=== PATIENT | male | born 1985 | race American Indian/Alaskan Native ===

== ENCOUNTER 2018-11-11 11:35 | Inpatient (IN) | payer MEDICAID, OTHER ==
[2018-11-11 11:41] VITALS: BMI 33.4
[2018-11-11 11:47] VITALS: RESP 18; O2SAT 95
--- NOTE | 2018-11-11 12:06 | ED PDOC ---
Arrival/HPI - General Historian: Patient - History of Present Illness Narrative History of Present Illness (Text): Patient is a 33 year old male with no significant medical history presenting with chief complaint of pain in his anal region which began a day prior. Patient states that he was itching and began scratching the area two days ago. Admits to constant sharp pain. He tried A&D ointment with no relief. Denies any bleeding or discharge from the area. Denies fevers, chills, chest pain, shortness of breath, abdominal pain, diarrhea, dysuria. Time/Duration: 24 hours Symptom Onset: Sudden Symptom Course: Unchanged Quality: Stabbing <Jesse Matias - Last Filed: 11/11/18 18:54> <Lester Hernández - Last Filed: 11/12/18 13:23> - General Chief Complaint: Abnormal Skin Integrity Past Medical History - Provider Review Nursing Documentation Reviewed: Yes - Psychiatric Hx Substance Use: No <Jesse Matias - Last Filed: 11/11/18 18:54> Family/Social History - Physician Review Nursing Documentation Reviewed: Yes Family/Social History: No Known Family HX Smoking Status: Former Smoker Hx Alcohol Use: Yes Frequency of alcohol use: Socially Hx Substance Use: No <Jesse Matias - Last Filed: 11/11/18 18:54> Allergies/Home Meds <Jesse Matias - Last Filed: 11/11/18 18:54> <Lester Hernández - Last Filed: 11/12/18 13:23> Allergies/Adverse Reactions: Allergies No Known Allergies Allergy (Verified 11/11/18 11:41) Review of Systems - Physician Review All systems were reviewed & negative as marked: Yes - Review of Systems Respiratory: Normal Cardiovascular: Normal Gastrointestinal: Normal Genitourinary Male: Normal (pain in anal region ) <Jesse Matias - Last Filed: 11/11/18 18:54> Physical Exam Vital Signs Temp Pulse Resp BP Pulse Ox 11/11/18 11:41 98.4 F 100 H 18 148/90 95 Temperature: Afebrile Blood Pressure: Normal Pulse: Tachycardic Respiratory Rate: Normal Appearance: Positive for: Well-Appearing Pain Distress: Moderate Mental Status: Positive for: Alert and Oriented X 3 - Systems Exam Head: Present: Atraumatic, Normocephalic Pupils: Present: PERRL Extroacular Muscles: Present: EOMI Conjunctiva: Present: Normal Mouth: Present: Moist Mucous Membranes Respiratory/Chest: Present: Clear to Auscultation, Good Air Exchange. No: Respiratory Distress, Accessory Muscle Use Abdomen: Present: Normal Bowel Sounds. No: Tenderness, Distention Rectal: Present: Rectal Tenderness, Normal Rectal Tone, Nodule/Mass/Lesions. No: Gross Blood, Hemorrhoids Lower Extremity: Present: Normal Inspection. No: Edema Neurological: Present: GCS=15, CN II-XII Intact, Speech Normal Skin: Present: Warm, Dry, Normal Color Psychiatric: Present: Alert, Oriented x 3 <Jesse Matias - Last Filed: 11/11/18 18:54> Vital Signs Temp Pulse Resp BP Pulse Ox 11/11/18 11:41 98.4 F 100 H 18 148/90 95 <Lester Hernández - Last Filed: 11/12/18 13:23> Medical Decision Making ED Course and Treatment: Impression: 33 year old male with pain in anal region Plan: - CBC, CMP - Surgery consult - Reassess and disposition Prior Visits: Notes and results from previous visits were reviewed. Progress Notes: 11/11/18 16:03 Surgery consulted for evaluation. Labs and imaging reviewed. Patient will need I&D in OR as per surgery recs. Patient to be admitted to hospitalist service. Plan of management reviewed with patient who is in agreement. Case discussed with Dr. Jimenez and resident who are in agreement. CT pelvis to be obtained. Patient started on Flagyl and Cipro. Patient hemodynamically stable. <Jesse Matias - Last Filed: 11/11/18 18:54> ED Course and Treatment: 11/11/18 14:09 A 33 year old male, who presents to the ED with a complaint of 1 day duration, constant, sharp, pain to the anal region. In agreement with resident note, which includes further HPI details. Patient was seen and evaluated with resident, came up with plan and treatment together. - Lab Interpretations Lab Results: Total Bilirubin 0.4 mg/dL (0.2-1.3) 11/11/18 12:20 AST 29 U/L (17-59) 11/11/18 12:20 ALT 30 U/L (7-56) 11/11/18 12:20 Alkaline Phosphatase 55 U/L (38-126) 11/11/18 12:20 Total Protein 8.7 g/dL (5.8-8.3) H 11/11/18 12:20 Albumin 4.5 g/dL (3.0-4.8) 11/11/18 12:20 Globulin 4.2 gm/dL 11/11/18 12:20 Albumin/Globulin Ratio 1.1 (1.1-1.8) 11/11/18 12:20 <Lester Hernández - Last Filed: 11/12/18 13:23> - PA / GENERAL OPHTHALMOLOGIST / Resident Statement / has reviewed & agrees with the documentation as recorded. / has examined the patient and agrees with the treatment plan. (33 yr old male p/w rectal pain, found to have jessenia-rectal abcess. No crepitus noted, No signs of fourniers grangrene noted. NO testicular or penile pain. No dark or bloody stool. Surgery consulted - saw pt and recc iv abx, CT pelvis and admission to medicine. Pt in NAD, admitted to hospitalist service. Pt in NAD throughout visit without any abdl tenderness.) - Scribe Statement The provider has reviewed the documentation as recorded by the Scribe Kathy Sanabria Provider Scribe Attestation: All medical record entries made by the Scribe were at my direction and personally dictated by me. I have reviewed the chart and agree that the record accurately reflects my personal performance of the history, physical exam, medical decision making, and the department course for this patient. I have also personally directed, reviewed, and agree with the discharge instructions and disposition. <Lester Hernández - Last Filed: 11/12/18 13:23> Disposition/Present on Arrival - Present on Arrival Any Indicators Present on Arrival: No History of DVT/PE: No History of Uncontrolled Diabetes: No Urinary Catheter: No History of Decub. Ulcer: No History Surgical Site Infection Following: None - Disposition Have Diagnosis and Disposition been Completed?: Yes Disposition Time: 16:00 <Jesse Matias - Last Filed: 11/11/18 18:54> <Lester Hernández - Last Filed: 11/12/18 13:23> - Disposition Diagnosis: Perirectal abscess Disposition: HOSPITALIZED Patient Problems: Current Active Problems Problem Status Onset Perirectal abscess Acute Condition: STABLE
[2018-11-11 12:36] LABS: BASO # 0.02 K/mm3 (0.0-2.0); BASO % 0.3 % (0.0-3.0); EOS # 0.1 (0.0-0.7); EOS % 0.7 % (1.5-5.0); HEMOGLOBIN 14.8 g/dL (14.0-18.0); LYMPH # 1.3 (1.2-3.4); LYMPH % 18.1 % (22.0-35.0); MEAN CELL VOLUME 93.9 fl (80.0-105.0); MEAN CORPUSCULAR HEMOGLOBIN 31.4 pg (25.0-35.0); MEAN CORPUSCULAR HGB CONC 33.4 g/dl (31.0-37.0); MEAN PLATELET VOLUME 8.9 fl (7.0-11.0); MONO # 0.8 (0.1-0.6); MONO % 10.8 % (1.0-6.0); RBC 4.72 10^6/uL (3.5-6.1); RED CELL DISTRIBUTION WIDTH 12.8 % (11.5-14.5); WHITE BLOOD COUNT 7.1 10^3/uL (4.5-11.0)
[2018-11-11 12:47] LABS: ALB/GLOB RATIO 1.1 (1.1-1.8); ALBUMIN 4.5 g/dL (3.0-4.8); ALT/SGPT 30 U/L (7-56); AST/SGOT 29 U/L (17-59); BLOOD UREA NITROGEN 12 mg/dL (7-21); CALCIUM 9.8 mg/dL (8.4-10.5); GFR NON-AFRICAN AMERICAN > 60
--- NOTE | 2018-11-11 13:10 | CP.PCM.CON ---
History of Present Illness - History of Present Illness History of Present Illness: PGY1 General surgery consult note for Dr. Sanchez This is a 33 year old male with no significant PMH who reports pain in the anal region which began 1 day ago. Two days ago, feeling an itch in the perirectal area and proceeded to scratch it. He tried applying A and D ointment to the area, without relief. He endorses pink blood on the tissue paper after wiping yesterday, denies blood in the toilet bowl. His last BM was today, and was normal, without any blood. Denies weight loss, fevers, chills, chest pain, shortness of breath, abdominal pain, n/v/d, hematochezia, melena. Pt endorse a long history of constipation and having to strain for bowel movements. PMD: none PMH: denies PSH: strabismus repair 10 years ago Meds: denies Allx: NKDA FHx: mother and father with diabetes. No history of gastrointestinal issues in the family as per pt. SHx: Previous smoker, quit 10 years ago. Social EtOH use. Denies drug use. Denies MSM activity. (+) family history of cancer, but is unsure what type. Review of Systems - Review of Systems All systems: reviewed and no additional remarkable complaints except (as per HPI) Past Patient History - Past Social History Smoking Status: Former Smoker - PSYCHIATRIC Hx Substance Use: No - SURGICAL HISTORY Hx Surgeries: No Meds Allergies/Adverse Reactions: Allergies Allergy/AdvReac Type Severity Reaction Status Date / Time No Known Allergies Allergy Verified 11/11/18 11:41 Physical Exam - Constitutional Appears: Non-toxic, No Acute Distress - Head Exam Head Exam: ATRAUMATIC, NORMAL INSPECTION - Eye Exam Eye Exam: EOMI - ENT Exam ENT Exam: Mucous Membranes Moist - Respiratory Exam Respiratory Exam: Clear to Auscultation Bilateral, NORMAL BREATHING PATTERN. absent: Decreased Breath Sounds, Rales, Rhonchi, Wheezes - Cardiovascular Exam Cardiovascular Exam: REGULAR RHYTHM, +S1, +S2. absent: Tachycardia - GI/Abdominal Exam GI & Abdominal Exam: Normal Bowel Sounds, Soft. absent: Distended, Firm, Guard ing, Rebound, Rigid, Tenderness - Rectal Exam Additional comments: External exam: (+) 3cm by 2 cm area of erythema, fluctuance, and tenderness; small amount of purulent material visualized. Moderate amount of purulent material expressed. NO active bleeding. Internal exam: (-) impaction, (-) fluctuance palpated, (-) gross blood. Negative FOBT - Extremities Exam Extremities exam: Positive for: normal inspection. Negative for: calf tenderness, pedal edema - Back Exam Back exam: NORMAL INSPECTION - Neurological Exam Neurological exam: Alert, Oriented x3 - Psychiatric Exam Psychiatric exam: Normal Affect, Normal Mood - Skin Skin Exam: Dry, Normal Color, Warm Results - Vital Signs Recent Vital Signs: Last Vital Signs Temp 98.4 F 11/11/18 11:41 Pulse 100 H 11/11/18 11:41 Resp 18 11/11/18 11:41 BP 148/90 11/11/18 11:41 Pulse Ox 95 11/11/18 11:41 - Labs Result Diagrams: 11/11/18 12:20 11/11/18 12:20 Labs: Laboratory Results - last 24 hr 11/11/18 11/11/18 12:20 12:20 WBC 7.1 RBC 4.72 Hgb 14.8 Hct 44.3 MCV 93.9 MCH 31.4 MCHC 33.4 RDW 12.8 Plt Count 298 MPV 8.9 Neut % (Auto) 70.1 H Lymph % (Auto) 18.1 L [place] % (Auto) 10.8 H Eos % (Auto) 0.7 L Baso % (Auto) 0.3 Lymph # (Auto) 1.3 [place] # (Auto) 0.8 H Eos # (Auto) 0.1 Baso # (Auto) 0.02 Absolute Neuts (auto) 5.01 Sodium 140 Potassium 4.1 Chloride 99 Carbon Dioxide 33 Anion Gap 12 BUN 12 Creatinine 1.1 Est GFR ( Amer) > 60 Est GFR (Non-Af Amer) > 60 Random Glucose 102 Calcium 9.8 Total Bilirubin 0.4 AST 29 ALT 30 Alkaline Phosphatase 55 Total Protein 8.7 H Albumin 4.5 Globulin 4.2 Albumin/Globulin Ratio 1.1 Assessment & Plan - Assessment and Plan (Free Text) Assessment: This is a 33 year old male with no PMH who presents for pain to the rectal area. Plan: Carmen-rectal abscess Labs reviewed Received Flagyl and Cipro in the ED Ultram 50 mg PO q6h PRN for pain For incision and drainage tomorrow, 11/12 Vancomycin and Zosyn to start tonight F/u CT Pelvis with IV contrast Further recommendations as per Dr. Sanchez PGY1 Fox Hernandez Pager #[phone]
[2018-11-11] MEDS ORDERED: Ciprofloxacin 400mg/200ml D5W 400 MG/200 ML BAG IVPB STA (15:37)
[2018-11-11] MEDS ORDERED: Sodium Chloride 0.9% 1,000 ML IV ONE (15:37)
[2018-11-11] MEDS ORDERED: metroNIDAZOLE IV 500 mg/100 ml 500 MG/100 ML BAG IVPB STA (15:37)
[2018-11-11] MEDS ORDERED: Morphine 4 mg/ml ISec IVP STA (15:37)
[2018-11-11] MEDS ORDERED: Iohexol 350 MG/100 ML VIAL ONE (16:50)
[2018-11-11] MEDS ORDERED: Piperacillin/Tazobact 3.375 gm 100 ML IVPB SCH (17:00)
[2018-11-11] MEDS ORDERED: Vancomycin 1.5 GM in Sodium Chloride 0.9% 500 ML IVPB SCH (17:00)
--- NOTE | 2018-11-11 17:30 | CP.PCM.HP ---
<Donny Rosario - Last Filed: 11/11/18 18:46> History of Present Illness - History of Present Illness History of Present Illness: Donny Rosario, PGY-1 History and Physical for Hospitalist Service CC: Rectal pain HPI: Mr. Faith is a 33 year old male with no significant PMHx who reports pain in the anal region which began 1 day ago. Patient reports pain is worse upon sitting and walking. Patient denies radiation and describes pain as sharp and stinging. Two days ago, patient began appreciating pruritis in the perirectal area and proceeded to scratch it. He tried applying A and D ointment to the area without relief. Patient denied discharg but endorses pink blood on the tissue paper after wiping yesterday. Patient denies christopher blood in the toilet bowl. Patient reports normal bladder function, and denies melena, hematochezia, BRBPR. Patient further denies weight loss, fevers, chills, chest pain, shortness of breath, abdominal pain, n/v/d. Patient endorses a long his tory of constipation and having to strain for bowel movements, but is not aware of any hemmorhoids. Patient denies MSM activity and states he is monogomous with his girlfriend. Patient had recent bloodwork performed at the clinic he attends to check for STDs but they were not resulted per patient. D: [facility] PMHx: Denies PSHx: strabismus repair 10 years ago Meds: denies Allx: NKDA, seasonal allergies FHx: mother and father with diabetes. Denies history of gastrointestinal issues in the family SHx: Previous smoker, quit 10 years ago. Social EtOH use on weekends. Denies drug use. Present on Admission - Present on Admission Any Indicators Present on Admission: No Review of Systems - Review of Systems Review of Systems: 12 point ROS completed and negative except as described in HPI. Past Patient History - Past Social History Smoking Status: Former Smoker - PSYCHIATRIC Hx Substance Use: No - SURGICAL HISTORY Hx Surgeries: No Meds Allergies/Adverse Reactions: Allergies Allergy/AdvReac Type Severity Reaction Status Date / Time No Known Allergies Allergy Verified 11/11/18 11:41 Physical Exam - Additional Findings Additional findings: - Constitutional Appears: Non-toxic, No Acute Distress - Head Exam Head Exam: ATRAUMATIC, NORMAL INSPECTION - Eye Exam Eye Exam: EOMI - ENT Exam ENT Exam: Mucous Membranes Moist - Respiratory Exam Respiratory Exam: Clear to Auscultation Bilateral, NORMAL BREATHING PATTERN. absent: Decreased Breath Sounds, Rales, Rhonchi, Wheezes - Cardiovascular Exam Cardiovascular Exam: REGULAR RHYTHM, +S1, +S2. absent: Tachycardia - GI/Abdominal Exam GI & Abdominal Exam: Normal Bowel Sounds, Soft. absent: Distended, Firm, Guarding, Rebound, Rigid, Tenderness - Rectal Exam Additional comments: External exam: (+) 3cm by 2 cm area of erythema, fluctuance, and tenderness; small amount of purulent material visualized. Clear purulent material expressed. No active bleeding. Internal exam: No fluctuance palpated or gross blood appreciated. Negative FOBT - Extremities Exam Extremities exam: Positive for: normal inspection. Negative for: calf tenderness, pedal edema - Back Exam Back exam: NORMAL INSPECTION - Neurological Exam Neurological exam: Alert, Oriented x3 - Psychiatric Exam Psychiatric exam: Normal Affect, Normal Mood - Skin Skin Exam: Dry, Normal Color, Warm Results - Vital Signs Recent Vital Signs: Last Vital Signs Temp 98.4 F 11/11/18 11:41 Pulse 84 11/11/18 15:28 Resp 18 11/11/18 15:28 BP 119/65 11/11/18 15:28 Pulse Ox 95 11/11/18 15:28 - Labs Result Diagrams: 11/11/18 12:20 11/11/18 12:20 Labs: Laboratory Results - last 24 hr 11/11/18 11/11/18 12:20 12:20 WBC 7.1 RBC 4.72 Hgb 14.8 Hct 44.3 MCV 93.9 MCH 31.4 MCHC 33.4 RDW 12.8 Plt Count 298 MPV 8.9 Neut % (Auto) 70.1 H Lymph % (Auto) 18.1 L [place] % (Auto) 10.8 H Eos % (Auto) 0.7 L Baso % (Auto) 0.3 Lymph # (Auto) 1.3 [place] # (Auto) 0.8 H Eos # (Auto) 0.1 Baso # (Auto) 0.02 Absolute Neuts (auto) 5.01 Sodium 140 Potassium 4.1 Chloride 99 Carbon Dioxide 33 Anion Gap 12 BUN 12 Creatinine 1.1 Est GFR ( Amer) > 60 Est GFR (Non-Af Amer) > 60 Random Glucose 102 Calcium 9.8 Total Bilirubin 0.4 AST 29 ALT 30 Alkaline Phosphatase 55 Total Protein 8.7 H Albumin 4.5 Globulin 4.2 Albumin/Globulin Ratio 1.1 Assessment & Plan - Assessment and Plan (Free Text) Assessment: 33 year old male with no PMHx who presents for pain to the rectal area. Carmen-rectal collection - CT Pelvis with IV contrast: no drainable collection/rectal or perineal abscess - No leukocytosis, remains afebrile - Vanc and Zosyn broad ABx coverage - Ultram 50 mg PO q6h PRN for pain - F/U AM labs - NPO after breakfast per surgery, plan for incision and drainage tomorrow - Gen Surgery consult - Dr. Sanchez DVT ppx - SCDs, chemoprophylaxis on hold in light of OR Patient seen, case reviewed and plan approved by Dr. Jimenez. Donny Rosario, PGY-1 <Matilda Jimenez - Last Filed: 11/12/18 07:49> Results - Vital Signs Recent Vital Signs: Last Vital Signs Temp 98.4 F 11/11/18 11:41 Pulse 88 11/11/18 18:11 Resp 18 11/11/18 18:11 BP 119/65 11/11/18 15:28 Pulse Ox 95 11/11/18 15:28 - Labs Result Diagrams: 11/12/18 06:20 11/11/18 12:20 Labs: Laboratory Results - last 24 hr 11/11/18 11/11/18 11/12/18 12:20 12:20 06:20 WBC 7.1 4.6 D RBC 4.72 4.33 Hgb 14.8 13.2 L Hct 44.3 40.9 L MCV 93.9 94.5 MCH 31.4 30.5 MCHC 33.4 32.3 RDW 12.8 13.0 Plt Count 298 285 MPV 8.9 9.2 Neut % (Auto) 70.1 H 57.7 Lymph % (Auto) 18.1 L 27.5 [place] % (Auto) 10.8 H 12.4 H Eos % (Auto) 0.7 L 1.7 Baso % (Auto) 0.3 0.7 Lymph # (Auto) 1.3 1.3 [place] # (Auto) 0.8 H 0.6 Eos # (Auto) 0.1 0.1 Baso # (Auto) 0.02 0.03 Absolute Neuts (auto) 5.01 2.66 PT INR APTT Sodium 140 Potassium 4.1 Chloride 99 Carbon Dioxide 33 Anion Gap 12 BUN 12 Creatinine 1.1 Est GFR ( Amer) > 60 Est GFR (Non-Af Amer) > 60 Random Glucose 102 Calcium 9.8 Total Bilirubin 0.4 AST 29 ALT 30 Alkaline Phosphatase 55 Total Protein 8.7 H Albumin 4.5 Globulin 4.2 Albumin/Globulin Ratio 1.1 11/12/18 06:20 WBC RBC Hgb Hct MCV MCH MCHC RDW Plt Count MPV Neut % (Auto) Lymph % (Auto) [place] % (Auto) Eos % (Auto) Baso % (Auto) Lymph # (Auto) [place] # (Auto) Eos # (Auto) Baso # (Auto) Absolute Neuts (auto) PT 12.6 H INR 1.12 APTT 31.6 Sodium Potassium Chloride Carbon Dioxide Anion Gap BUN Creatinine Est GFR ( Amer) Est GFR (Non-Af Amer) Random Glucose Calcium Total Bilirubin AST ALT Alkaline Phosphatase Total Protein Albumin Globulin Albumin/Globulin Ratio Attending/Attestation - Attestation I have personally seen and examined this patient.: Yes I have fully participated in the care of the patient.: Yes I have reviewed all pertinent clinical information: Yes Notes (Text): 11/12/18 07:49 Medical record note made by the resident after discussion with my direction and input after the patient was personally seen and examined by me. I have reviewed the chart and agree that the record accurately reflects by personal performance of the history, physical exam, data review, and medical decision-making, in the course for the patient. I have also personally directed the plan of care
[2018-11-11] MEDS ORDERED: Lidocaine 1%/Epinephrine 1:100000 30 ml vial IJ ONE (17:45)
[2018-11-11] MEDS ORDERED: Pneumococcal 23-Valent Vaccine IM ONE (18:11)
--- NOTE | 2018-11-11 18:45 | CT ---
Date of service: 11/11/2018 PROCEDURE: CT Pelvis with contrast HISTORY: eval rectal abscess COMPARISON: None available. TECHNIQUE: Contiguous axial images of the pelvis with contrast. Coronal and sagittal reformats generated. Contrast dose: 100 cc Omnipaque 350. Radiation dose: Total exam DLP = 1087.13 mGy-cm. This CT exam was performed using one or more of the following dose reduction techniques: Automated exposure control, adjustment of the mA and/or kV according to patient size, and/or use of iterative reconstruction technique. FINDINGS: BLADDER: Unremarkable. No mass. REPRODUCTIVE ORGANS: Unremarkable. VISUALIZED BOWEL: Unremarkable. PERITONEUM: Unremarkable, as visualized. No free fluid. No free air. LYMPH NODES: Unremarkable. No enlarged lymph nodes. VASCULATURE: No aortic atherosclerotic calcification or mural plaque present. BONES: No fracture or focal lesion. OTHER FINDINGS: None. IMPRESSION: Unremarkable contrast enhanced CT of the pelvis. Specifically no drainable collection/rectal or perineal abscess.
[2018-11-11] MEDS ORDERED: Sodium Chloride 0.9% 1,000 ML IV SCH (20:00)
[2018-11-11] MEDS: Piperacillin/Tazobact 3.375 gm 100 ML IVPB SCH (20:36)
[2018-11-11] MEDS: Vancomycin 1.5 GM in Sodium Chloride 0.9% 500 ML IVPB SCH (22:41)
[2018-11-12] MEDS: Piperacillin/Tazobact 3.375 gm 100 ML IVPB SCH ×2 (05:59→12:22)
[2018-11-12 07:07] LABS: BASO # 0.03 K/mm3 (0.0-2.0); BASO % 0.7 % (0.0-3.0); EOS # 0.1 (0.0-0.7); EOS % 1.7 % (1.5-5.0); HEMOGLOBIN 13.2 g/dL (14.0-18.0); INR 1.12; LYMPH # 1.3 (1.2-3.4); LYMPH % 27.5 % (22.0-35.0); MEAN CELL VOLUME 94.5 fl (80.0-105.0); MEAN CORPUSCULAR HEMOGLOBIN 30.5 pg (25.0-35.0); MEAN CORPUSCULAR HGB CONC 32.3 g/dl (31.0-37.0); MEAN PLATELET VOLUME 9.2 fl (7.0-11.0); MONO # 0.6 (0.1-0.6); MONO % 12.4 % (1.0-6.0); PARTIAL THROMBOPLASTIN TIME 31.6 Seconds (26.9-38.3); PROTHROMBIN TIME 12.6 SECONDS (9.4-12.5); RBC 4.33 10^6/uL (3.5-6.1); WHITE BLOOD COUNT 4.6 10^3/uL (4.5-11.0)
[2018-11-12] MEDS: Vancomycin 1.5 GM in Sodium Chloride 0.9% 500 ML IVPB SCH (08:00)
[2018-11-12 08:03] VITALS: BP 116/70; PULSE 82; TEMP 97.9
[2018-11-12 08:05] LABS: ALB/GLOB RATIO 1.1 (1.1-1.8); ALBUMIN 3.8 g/dL (3.0-4.8); ALT/SGPT 25 U/L (7-56); AST/SGOT 35 U/L (17-59); BLOOD UREA NITROGEN 14 mg/dL (7-21); CALCIUM 8.9 mg/dL (8.4-10.5); GFR NON-AFRICAN AMERICAN > 60
--- NOTE | 2018-11-12 12:46 | CP.PCM.DIS ---
<Donny Rosario - Last Filed: 11/12/18 12:38> Provider - Provider Date of Admission: 11/11/18 16:03 Attending physician: Matidla Jimenez MD Primary care physician: NO PRIMARY CARE PROVIDER Consults: 11/11/18 15:57 General Surgery Consult Routine Comment: Consulting Provider: Timur Sanchez Consulting Physician: Timur Sanchez Reason for Consult: rectal abscess Time Spent in preparation of Discharge (in minutes): 35 Hospital Course - Lab Results Lab Results: Most Recent Lab Values WBC 4.6 10^3/uL (4.5-11.0) D 11/12/18 06:20 RBC 4.33 10^6/uL (3.5-6.1) 11/12/18 06:20 Hgb 13.2 g/dL (14.0-18.0) L 11/12/18 06:20 Hct 40.9 % (42.0-52.0) L 11/12/18 06:20 MCV 94.5 fl (80.0-105.0) 11/12/18 06:20 MCH 30.5 pg (25.0-35.0) 11/12/18 06:20 MCHC 32.3 g/dl (31.0-37.0) 11/12/18 06:20 RDW 13.0 % (11.5-14.5) 11/12/18 06:20 Plt Count 285 10^3/uL (120.0-450.0) 11/12/18 06:20 MPV 9.2 fl (7.0-11.0) 11/12/18 06:20 Neut % (Auto) 57.7 % (50.0-68.0) 11/12/18 06:20 Lymph % (Auto) 27.5 % (22.0-35.0) 11/12/18 06:20 Hidalgo % (Auto) 12.4 % (1.0-6.0) H 11/12/18 06:20 Eos % (Auto) 1.7 % (1.5-5.0) 11/12/18 06:20 Baso % (Auto) 0.7 % (0.0-3.0) 11/12/18 06:20 Lymph # (Auto) 1.3 (1.2-3.4) 11/12/18 06:20 Hidalgo # (Auto) 0.6 (0.1-0.6) 11/12/18 06:20 Eos # (Auto) 0.1 (0.0-0.7) 11/12/18 06:20 Baso # (Auto) 0.03 K/mm3 (0.0-2.0) 11/12/18 06:20 Absolute Neuts (auto) 2.66 (1.4-6.5) 11/12/18 06:20 PT 12.6 SECONDS (9.4-12.5) H 11/12/18 06:20 INR 1.12 11/12/18 06:20 APTT 31.6 Seconds (26.9-38.3) 11/12/18 06:20 Sodium 139 mmol/L (132-148) 11/12/18 06:20 Potassium 3.8 mmol/L (3.6-5.0) 11/12/18 06:20 Chloride 104 mmol/L (98-107) 11/12/18 06:20 Carbon Dioxide 30 mmol/L (21-33) 11/12/18 06:20 Anion Gap 10 (10-20) 11/12/18 06:20 BUN 14 mg/dL (7-21) 11/12/18 06:20 Creatinine 1.2 mg/dl (0.8-1.5) 11/12/18 06:20 Est GFR ( Amer) > 60 11/12/18 06:20 Est GFR (Non-Af Amer) > 60 11/12/18 06:20 Random Glucose 97 mg/dL (70-110) 11/12/18 06:20 Calcium 8.9 mg/dL (8.4-10.5) 11/12/18 06:20 Phosphorus 4.2 mg/dL (2.5-4.5) 11/12/18 06:20 Magnesium 2.1 mg/dL (1.7-2.2) 11/12/18 06:20 Total Bilirubin 0.3 mg/dL (0.2-1.3) 11/12/18 06:20 AST 35 U/L (17-59) 11/12/18 06:20 ALT 25 U/L (7-56) 11/12/18 06:20 Alkaline Phosphatase 51 U/L (38-126) 11/12/18 06:20 Total Protein 7.3 g/dL (5.8-8.3) 11/12/18 06:20 Albumin 3.8 g/dL (3.0-4.8) 11/12/18 06:20 Globulin 3.5 gm/dL 11/12/18 06:20 Albumin/Globulin Ratio 1.1 (1.1-1.8) 11/12/18 06:20 - Hospital Course Hospital Course: Donny Yuniertiny, PGY-1 Discharge Summary for Hospitalist Service 33 year old male with no PMHx who presents for pain to the rectal area. CT Pelvis with IV contrast showed no drainable collection/rectal or perineal abscess. General Surgery - Dr. Sanchez was consulted. Vanc and Zosyn were initially give for broad coverage. Patient was on pain control and remained NPO. Patient received a bedside I&D next morning of jessenia-rectal collection without complications. Patient reported decreased pain in the rectal area. Patient has urinated spontaneously and passed gas at this time. Patient was tolerating diet without issue. Surgery has cleared patient for discharge on antibiotics. Discharge instructions included: Please follow up at the [facility] clinic within 3-5 days. Please take your Keflex and Flagyl antibiotics as prescribed. These antibiotics were provided at bedside. A script for Ultram for pain control was provided. Please eat high fiber foods and increase your oral hydration with water. Should symptoms worsen or reoccur, please visit nearest emergency department. Patient was in agreement with plan for discharge and questions were answered in detail. For full details, please refer to EMR. Patient seen, case reviewed and plan approved by Dr. Jimenez. Discharge Exam - Additional Findings Additional findings: - Constitutional Appears: Non-toxic, No Acute Distress - Head Exam Head Exam: ATRAUMATIC, NORMAL INSPECTION - Eye Exam Eye Exam: EOMI - ENT Exam ENT Exam: Mucous Membranes Moist - Respiratory Exam Respiratory Exam: Clear to Auscultation Bilateral, NORMAL BREATHING PATTERN. absent: Decreased Breath Sounds, Rales, Rhonchi, Wheezes - Cardiovascular Exam Cardiovascular Exam: REGULAR RHYTHM, +S1, +S2. absent: Tachycardia - GI/Abdominal Exam GI & Abdominal Exam: Normal Bowel Sounds, Soft. absent: Distended, Firm, Guarding, Rebound, Rigid, Tenderness - Rectal Exam Additional comments: External exam: Tenderness; small amount of purulent material visualized with guaze overlying. No active bleeding. Internal exam: No fluctuance palpated or gross blood appreciated. - Extremities Exam Extremities exam: Positive for: normal inspection. Negative for: calf tenderness, pedal edema - Back Exam Back exam: NORMAL INSPECTION - Neurological Exam Neurological exam: Alert, Oriented x3 - Psychiatric Exam Psychiatric exam: Normal Affect, Normal Mood - Skin Skin Exam: Dry, Normal Color, Warm Discharge Plan - Discharge Medications Prescriptions: Cephalexin [cephalexin] 500 mg PO DAILY #7 cap Metronidazole [Flagyl] 500 mg PO BID #14 tablet traMADol [Ultram] 50 mg PO Q6 PRN #20 tab PRN Reason: Pain, Moderate (4-7) - Follow Up Plan Condition: STABLE Disposition: HOME/ ROUTINE Instructions: Abscess (GEN) Additional Instructions: Please follow up at the [facility] within 3-5 days. Please take your Keflex and Flagyl antibiotics as prescribed. These antibiotics were provided at bedside. A script for Ultram for pain control was provided. Please eat high fiber foods and increase your oral hydration with water. Should symptoms worsen or reoccur, please visit nearest emergency department. Referrals: Timur Sanchez MD [Staff Provider] - PCP,VIANCA [Primary Care Provider] - <Matilda Jimenez - Last Filed: 11/13/18 15:38> Provider - Provider Date of Admission: 11/11/18 16:03 Attending physician: Matilda Jimenez MD Primary care physician: NO PRIMARY CARE PROVIDER Consults: 11/11/18 15:57 General Surgery Consult Routine Comment: Consulting Provider: Timur Sanchez Consulting Physician: Timur Sanchez Reason for Consult: rectal abscess Hospital Course - Lab Results Lab Results: Most Recent Lab Values WBC 4.6 10^3/uL (4.5-11.0) D 11/12/18 06:20 RBC 4.33 10^6/uL (3.5-6.1) 11/12/18 06:20 Hgb 13.2 g/dL (14.0-18.0) L 11/12/18 06:20 Hct 40.9 % (42.0-52.0) L 11/12/18 06:20 MCV 94.5 fl (80.0-105.0) 11/12/18 06:20 MCH 30.5 pg (25.0-35.0) 11/12/18 06:20 MCHC 32.3 g/dl (31.0-37.0) 11/12/18 06:20 RDW 13.0 % (11.5-14.5) 11/12/18 06:20 Plt Count 285 10^3/uL (120.0-450.0) 11/12/18 06:20 MPV 9.2 fl (7.0-11.0) 11/12/18 06:20 Neut % (Auto) 57.7 % (50.0-68.0) 11/12/18 06:20 Lymph % (Auto) 27.5 % (22.0-35.0) 11/12/18 06:20 Hidalgo % (Auto) 12.4 % (1.0-6.0) H 11/12/18 06:20 Eos % (Auto) 1.7 % (1.5-5.0) 11/12/18 06:20 Baso % (Auto) 0.7 % (0.0-3.0) 11/12/18 06:20 Lymph # (Auto) 1.3 (1.2-3.4) 11/12/18 06:20 Hidalgo # (Auto) 0.6 (0.1-0.6) 11/12/18 06:20 Eos # (Auto) 0.1 (0.0-0.7) 11/12/18 06:20 Baso # (Auto) 0.03 K/mm3 (0.0-2.0) 11/12/18 06:20 Absolute Neuts (auto) 2.66 (1.4-6.5) 11/12/18 06:20 PT 12.6 SECONDS (9.4-12.5) H 11/12/18 06:20 INR 1.12 11/12/18 06:20 APTT 31.6 Seconds (26.9-38.3) 11/12/18 06:20 Sodium 139 mmol/L (132-148) 11/12/18 06:20 Potassium 3.8 mmol/L (3.6-5.0) 11/12/18 06:20 Chloride 104 mmol/L (98-107) 11/12/18 06:20 Carbon Dioxide 30 mmol/L (21-33) 11/12/18 06:20 Anion Gap 10 (10-20) 11/12/18 06:20 BUN 14 mg/dL (7-21) 11/12/18 06:20 Creatinine 1.2 mg/dl (0.8-1.5) 11/12/18 06:20 Est GFR ( Amer) > 60 11/12/18 06:20 Est GFR (Non-Af Amer) > 60 11/12/18 06:20 Random Glucose 97 mg/dL (70-110) 11/12/18 06:20 Calcium 8.9 mg/dL (8.4-10.5) 11/12/18 06:20 Phosphorus 4.2 mg/dL (2.5-4.5) 11/12/18 06:20 Magnesium 2.1 mg/dL (1.7-2.2) 11/12/18 06:20 Total Bilirubin 0.3 mg/dL (0.2-1.3) 11/12/18 06:20 AST 35 U/L (17-59) 11/12/18 06:20 ALT 25 U/L (7-56) 11/12/18 06:20 Alkaline Phosphatase 51 U/L (38-126) 11/12/18 06:20 Total Protein 7.3 g/dL (5.8-8.3) 11/12/18 06:20 Albumin 3.8 g/dL (3.0-4.8) 11/12/18 06:20 Globulin 3.5 gm/dL 11/12/18 06:20 Albumin/Globulin Ratio 1.1 (1.1-1.8) 11/12/18 06:20 Attending/Attestation - Attestation I have personally seen and examined this patient.: Yes I have fully participated in the care of the patient.: Yes I have reviewed all pertinent clinical information, including history, physical exam and plan: Yes Notes (Text): 11/13/18 15:36 Medical record note made by the resident after discussion with my direction and input after the patient was personally seen and examined by me. I have reviewed the chart and agree that the record accurately reflects by personal performance of the history, physical exam, data review, and medical decision-making, in the course for the patient. I have also personally directed the plan of care. 33 year old male with no PMH who presents for pain to the rectal area. I and D of perirectal abscess at bedside on 11/12. Patient is feeling better, pain is improved. He will be discharged home and will follow up with Surgery and [facility]. Management plan was discussed in detail with patient. Education was provided.
--- NOTE | 2018-11-12 13:31 | CP.PCM.PN ---
Subjective - Date & Time of Evaluation Date of Evaluation: 11/12/18 Time of Evaluation: 09:00 - Subjective Subjective: PGY1 General Surgery progress note for Dr. Sanchez Pt was seen and examined at bedside. Pt is resting comfortably. Still report lucas n to the jessenia-rectal area. Denies fever, chills, chest pain, sob, abdominal pain, n/v/d, hematochezia, melena. Objective - Vital Signs/Intake and Output Vital Signs (last 24 hours): Temp Pulse Resp BP Pulse Ox 97.9 F 82 18 116/70 95 11/12/18 06:00 11/12/18 06:00 11/12/18 06:00 11/12/18 06:00 11/12/18 06:00 Intake and Output: 11/12/18 11/12/18 06:59 18:59 Intake Total 960 Output Total 400 Balance 560 - Medications Medications: Current Medications Vancomycin HCl 1.5 gm/ Sodium (Chloride) 500 mls @ 167 mls/hr IVPB Q12H KAEL; Protocol Last Admin: 11/12/18 08:00 Dose: 167 mls/hr Sodium Chloride (Sodium Chloride 0.9%) 1,000 mls @ 100 mls/hr IV .Q10H KAEL Last Admin: 11/11/18 22:45 Dose: 100 mls/hr Tramadol HCl (Ultram) 50 mg PO Q6 PRN PRN Reason: Pain, moderate (4-7) - Labs Labs: 11/12/18 06:20 11/12/18 06:20 PT 12.6 SECONDS (9.4-12.5) H 11/12/18 06:20 INR 1.12 11/12/18 06:20 APTT 31.6 Seconds (26.9-38.3) 11/12/18 06:20 - Additional Findings Additional findings: - Constitutional Appears: Non-toxic, No Acute Distress - Head Exam Head Exam: ATRAUMATIC, NORMAL INSPECTION - Eye Exam Eye Exam: EOMI - ENT Exam ENT Exam: Mucous Membranes Moist - Respiratory Exam Respiratory Exam: Clear to Auscultation Bilateral, NORMAL BREATHING PATTERN. absent: Decreased Breath Sounds, Rales, Rhonchi, Wheezes - Cardiovascular Exam Cardiovascular Exam: REGULAR RHYTHM, +S1, +S2. absent: Tachycardia - GI/Abdominal Exam GI & Abdominal Exam: Normal Bowel Sounds, Soft. absent: Distended, Firm, Guarding, Rebound, Rigid, Tenderness - Rectal Exam Additional comments: External exam: (+) 1cm by 1cm external hemorrhoid at 12 o'clock with 1cm by 1 cm area adjacent with erythema, fluctuance and tenderness. NO active discharge/bleeding. - Extremities Exam Extremities exam: Positive for: normal inspection. Negative for: calf tenderness, pedal edema - Back Exam Back exam: NORMAL INSPECTION - Neurological Exam Neurological exam: Alert, Oriented x3 - Psychiatric Exam Psychiatric exam: Normal Affect, Normal Mood - Skin Skin Exam: Dry, Normal Color, Warm Assessment and Plan - Assessment and Plan (Free Text) Assessment: This is a 33 year old male with no PMH who presents for pain to the rectal area. I and D of perirectal abscess at bedside on 11/12. Plan: External hemorrhoid with adjacent jessenia-rectal abscess Labs reviewed, no leukocytosis VSS, afebrile Ultram for pain CT pelvis with contrast is unremarkable. Specifically no drainable collection/rectal or perianal abscess. Bedside I and D Pt provided with prescription for Ultram for pain, Keflex and Flagyl as abx. Plan to [facility] up with [facility] in 3-5 days. Case discussed with Dr. Sanchez PGY1 Fox Hernandez Pager #[phone] Incision and Drainage - Time Time Performed: 09:00 (bedside) - Time Out Time Out: Side verified, Site verified, Patient ID confirmed, Sterile procedures obs. - Procedure Procedure-Incision & Drainage: I&D of perirectal abscess/adjacent nonthrombosed external hemorrhoid - Consent obtained Consent obtained: Written - Performed by Performed by: Attending Physician (with resident assitance) - Indications Indications: Cutaneous abscess - Contraindications Contraindications: None - Location Location: Perirectal abscess - Dimensions Dimensions Length cm: 2 cm Dimensions width cm: 3cm - Anesthetic Technique Anesthetic Technique: Local - Anesthetic Anesthetic: Lidocaine 1% w/epi - Systemic Analgesia Systemic Analgesia: Other (ultram) - Procedure Procedure: Usual prep and drape, cm incision (1.5 cm), Overlying area fluctuance, # scalpel used (11), Explored for loculations - Drained Drained: ml blood (1) - Post-procedure Post procedure: Dressed - Complications Complications: None - Patient tolerated procedure Patient tolerated procedure: Well
== END 2018-11-12 15:21 | disposition home or self-care (01) | DRG 223 ==
LOC: ED 11:35 → ERH 16:03 → 3RNO 17:36
PROVIDERS: ADMIT Internal Medicine; ATTEND Internal Medicine
PROC: 0D9P3ZZ Drainage of Rectum, Percutaneous Approach (ICD-10-PCS; principal; 2018-11-12)
DX: K61.1 Rectal abscess (principal); K64.4 Residual hemorrhoidal skin tags; Z87.891 Personal history of nicotine dependence; Z83.3 Family history of diabetes mellitus